=== PATIENT | male | born 1980 | race Caucasian/White ===

== ENCOUNTER 2018-07-18 11:34 | Outpatient (REF) | payer MEDICAID, SELFPAY ==
[2018-07-18 21:30] LABS: ALT 80 U/L (12-78); AST 33 U/L (15-37); Uric Acid 6.1 mg/dL (3.5-7.2)
== END 2018-07-18 11:54 ==
LOC: NCHCN 11:34
PROVIDERS: PCP Family Medicine; Visit Provider Registered Nurse
DX: M10.9 Gout, unspecified (principal); K76.0 Fatty (change of) liver, not elsewhere classified; R94.5 Abnormal results of liver function studies; E66.9 Obesity, unspecified
CPT/HCPCS: 84450; 84460; 84550

== ENCOUNTER 2019-04-19 13:39 | Outpatient (REF) | payer MEDICAID, SELFPAY ==
[2019-04-19 22:57] LABS: Abs Immature Grans 0.02 k/cumm (0.0-0.09); Absolute Basophil Count 0.02 k/cumm (0.0-0.2); Absolute Eosinophil Count 0.11 k/cumm (0.0-0.7); Basophils % 0.3; Eosinophils % 1.7; HCT 44.6 % (40.0-50.0); HGB 15.6 g/dL (13.5-17.5); Immature Grans % 0.3; Lymphocytes % 21.1; Mean Corpuscular Hemoglobin 30.1 pg (27.0-33.0); Mean Corpuscular Volume 86.1 fL (80-95); Mean Platelet Volume 10.1 fL (8.0-11.0); Monocytes % 7.5; Neutrophils % 69.1; Platelet Count 248 x1000/uL (130-400); RBC 5.18 m/cumm (4.50-6.00); RBC Distribution Width 12.6 % (11.8-14.1); White Blood Cell Count 6.65 k/cumm (4.4-10.8)
[2019-04-19 23:06] LABS: ALT 51 U/L (12-78); AST 27 U/L (15-37); Albumin 3.9 g/dL (3.4-5.0); Alkaline Phosphatase 103 U/L (46-116); Anion Gap 11.5 mmol/L (3-11); BUN 10 mg/dL (7-18); Bilirubin, Total 0.6 mg/dL (0.2-1.0); CO2 25.5 mmol/L (21.0-32.0); CREATININE 1.08 mg/dL (0.70-1.30); Calcium 8.6 mg/dL (8.5-10.1); Calculated LDL 116 mg/dL; Chloride 103 mmol/L (98-107); Cholesterol 177 mg/dL (50-200); Glucose 76 mg/dL (70-100); HDL Cholesterol 29 mg/dL (40-60); Sodium 140 mmol/L (136-145); Triglyceride 162 mg/dL (30-150)
[2019-04-19 23:26] LABS: TSH (W/Ref FT4) 11.15 uIU/mL (0.36-3.74)
[2019-04-19 23:42] LABS: FREE T4 0.98 ng/dL (0.76-1.46)
== END 2019-04-19 13:59 ==
LOC: NCHCN 13:39
PROVIDERS: PCP Family Medicine; Visit Provider Family Medicine
DX: I10 Essential (primary) hypertension (principal); M10.9 Gout, unspecified; R94.5 Abnormal results of liver function studies
CPT/HCPCS: 80053; 80061; 83721; 84439; 84443; 85025

== ENCOUNTER 2019-04-28 11:05 | Outpatient (REF) | payer MEDICAID, SELFPAY ==
[2019-04-28 21:34] LABS: Uric Acid 6.4 mg/dL (3.5-7.2)
== END 2019-04-28 11:25 ==
LOC: NCHCN 11:05
PROVIDERS: PCP Family Medicine; Visit Provider Family Medicine
DX: I10 Essential (primary) hypertension (principal); M10.9 Gout, unspecified; R94.5 Abnormal results of liver function studies
CPT/HCPCS: 84550

== ENCOUNTER 2020-04-24 16:44 | Emergency (ER) | payer MEDICAID, SELFPAY ==
--- NOTE | 2020-04-24 17:03 | W.ED.GENAD ---
Discharge Plan Disposition Patient Disposition: HOME Condition: Good Discharge Details Chief Complaint: FlankPain Clinical Impression: Kidney stone, Creatinine elevation, Elevated liver enzymes Primary Care Provider: Miguel Hutson ED Provider: Angelina Spears Home Meds and New Rx's Prescriptions: New tamsulosin [Flomax] 0.4 mg capsule 0.4 mg PO DAILY Qty: 7 RF: 0 oxycodone 5 mg tablet 5 mg PO Q8H PRN (Reason: pain) Qty: 7 RF: 0 ondansetron 4 mg tablet,disintegrating 4 mg PO Q6H PRN (Reason: nausea and vomiting) Qty: 10 RF: 0 Continued allopurinol 300 mg tablet 300 mg PO DAILY RF: 0 Discharge Instructions Instructions: Oxycodone, Rapid Release (By mouth), Ondansetron (By mouth), Kidney Stones (ED) Additional Instructions: Encourage water intake. You may use Tylenol and/or ibuprofen as needed for discomfort. Please Flomax once a day, your dosing was given here today. Please continue to medication until your stone is passed. Please continue trying to strain your urine to catch a stone if possible. If Tylenol and ibuprofen are insufficient in alleviating your discomfort, please take the oxycodone as prescribed. Please take this medication only as prescribed do not drive will take this medication. Keep this in a safe place. May use Zofran as prescribed if nausea returns. Your liver enzymes and kidney function were elevated today. As discussed, I believe that your kidney function was set off by her stone as well as your dehydration. I would like for you to have this rechecked in few days. As discussed, your elevated liver enzymes may be associated with fatty liver disease, weight loss would be of benefit. Please discuss this further with your primary care. Please follow-up with primary care in the next few days for reevaluation and to have labs rechecked. Referral has been sent to urology. If you develop fever/chills, increased pain, inability stay hydrated or other new/worsening symptom please seek care urgently once again. Referrals: Miguel Hutson [Primary Care Provider] - Medical Decision Making Patient is a pleasant 39-year-old gentleman Presenting today with chief complaint of right flank pain. Reports that pain began suddenly approximately 1 hour prior to arrival. States that the has had nausea and vomiting. States he has had pain like this historically with nephrolithiasis. States that he has had one kidney stone which is approximately 10 years ago. He denies any fevers or chills. No dysuria keep hematuria. Denies any abdominal pain. Indicates the right flank area of discomfort. She denies any testicular discomfort. Denies any chest pain, shortness of breath, cough. Patient did recently travel to [facility] which is currently in the yellow for COVID-19. Patient does report that he has had diminished hydration. Had not been taking his allopurinol as prescribed for his gout. States that his urine has been very concentrated. On exam, patient appears uncomfortable. He indicates the right flank is area of discomfort. Abdomen is benign. He appears nontoxic. Appears dehydrated. Patient given Toradol and Zofran. Reports vast improvement in his nausea and discomfort. Hydrating patient. Labs reviewed. No leukocytosis. Stable H&H. Potassium is barely low at 3.4. Creatinine is bumped at 1.48. He last had this checked 1 year ago at which time it was 1.08. BUN stable. AST and ALT are both slightly elevated at 54 and 97 respectively. Patient has been elevated like this historically. Urine significant for large amount of blood, elevated specific gravity. No bacteria, negative leukocyte esterase, negative nitrite. FINDINGS: Lungs: Lung bases are clear. Liver: Diffuse hypoattenuation of the liver consistent with fatty infiltration. No hepatic mass, however hepatic dome excluded from field of view limiting evaluation of the hepatic dome. Gallbladder and bile ducts: Unremarkable. No calcified stones. No ductal dilation. Pancreas: Unremarkable. No ductal dilation. Spleen: Unremarkable. No splenomegaly. Adrenals: Unremarkable. No mass. Kidneys and ureters: There is mild asymmetric right hydronephrosis with 5 mm calcification within the proximal right ureter just distal to the UPJ. Remainder of left ureters normal in course and calibre. No left hydronephrosis or left renal calcification. Stomach and bowel: Unremarkable. No obstruction. No focal mucosal thickening. Appendix: Within normal limits. Intraperitoneal space: No free air. No significant fluid collection. Vasculature: Within normal limits. No abdominal aortic aneurysm. Lymph nodes: No pathologically enlarged lymph nodes. Bladder: Bladder is nondistended limiting evaluation, otherwise unremarkable as visualized. Reproductive: Unremarkable as visualized. Bones/joints: Unremarkable. No acute fracture. Soft tissues: Trace/small fat containing umbilical hernia. IMPRESSION: 1. Mild asymmetric right hydronephrosis with 5 mm calcification in the proximal right ureter, just distal to the UPJ. 2. Hepatic steatosis. Correlate with LFTs. Discussed these findings with the patient. He is receiving 2 L of fluid. We did discuss his elevated creatinine and elevated LFTs. Patient received 0.4 mg of Flomax. We will continue him on this until passage of his stone. We will give the patient a strainer, he will continue to strain his urine and attempt to collect a stone. I will refer him to urology. Patient continues to be resting comfortably. He denies any return of his discomfort. He is hydrating orally while here. We did discuss lifestyle modifications. He was given strict return precautions. He will contact his primary care tomorrow to schedule follow-up appointment as well as have his creatinine reassessed. All of his questions and concerns were addressed and he is in agreement with this plan. HPI General Mode of arrival: ambulatory. Date/Time Provider Initiated Documentation: 04/24/20 17:03. Limitations to Documentation: no limitations. Information obtained by: patient and RN notes reviewed. History of Present Illness 39 year old M presents to the emergency department with the chief complaint of right flank pain, described as moderate, with intensity rated at 8. Quality is described as stabbing, and is localized to the back (right flank). Patient reports no radiation. Patient started experiencing this hour(s) (1) and it has been constant. No relieving factors improve symptom(s), No exacerbating factors reported . Patient notes nausea/vomiting; denies chest pain, cough, fever/chills, loss of appetite, rash, shortness of breath and weakness. Patient did receive the following treatments prior to arrival, none Related Data Home Medications Medication Instructions Recorded Confirmed allopurinol 300 mg PO DAILY 04/24/20 04/24/20 ondansetron 4 mg PO Q6H PRN #10 tab 04/24/20 oxycodone 5 mg PO Q8H PRN #7 tab 04/24/20 tamsulosin [Flomax] 0.4 mg PO DAILY #7 cap 04/24/20 Previous Rx's Medication Instructions Recorded ondansetron 4 mg PO Q6H PRN #10 tab 04/24/20 oxycodone 5 mg PO Q8H PRN #7 tab 04/24/20 tamsulosin [Flomax] 0.4 mg PO DAILY #7 cap 04/24/20 Allergies Allergy/AdvReac Type Severity Reaction Status Date / Time penicillin G Allergy Unverified 04/24/20 17:25 Review of Systems Constitutional Constitutional: Reports as per HPI, Denies chills, Denies fatigue, Denies fever(s) and Denies headache(s) ENT Ears, Nose, Mouth, and Throat: Denies headache(s) Cardiovascular Cardiovascular: Reports as per HPI, Denies chest pain and Denies dyspnea Respiratory Respiratory: Reports as per HPI, Denies cough and Denies dyspnea Gastrointestinal Gastrointestinal: Reports as per HPI Genitourinary Genitourinary: Reports as per HPI Musculoskeletal Musculoskeletal: Reports as per HPI Neurologic Neurologic: Denies headache(s) Endocrine Endocrine: Denies fatigue Exam Const General: cooperative, healthy appearing, uncomfortable, no acute distress and well developed Nutritional Appearance: well nourished and overweight Orientation: alert and awake HENMD Mouth: mucous membranes dry (looks dry) Resp Effort & Inspection: normal respiratory effort and no respiratory distress Cardio Rate: regular rate Rhythm: regular rhythm GI Inspection: normal to inspection, no edema and non-distended Palpation: soft, no hepatosplenomegaly, no guarding, no hernias, no pulsatile masses and nontender Percussion: normal to percussion Auscultation: normal bowel sounds Back/Spine/Pelvis Back: CVA tenderness (right) Skin General skin exam: no rashes or lesions noted Neuro General: patient alert and patient awake Cognition: normal cognition Speech: speech normal Gait: normal gait Psych Appearance: grossly normal and well kempt Mental Status: mental status grossly normal Speech and Movement: speech and movement normal
[2020-04-24] MEDS: Normal Saline 1,000 ML 1000 ML IV (17:10)
[2020-04-24] MEDS: Ketorolac 30 MG/ML VIAL IVP (17:10)
[2020-04-24 17:19] VITALS: BP 146/90; PULSE 66; RESP 18; TEMP 35.8; O2SAT 98
[2020-04-24] MEDS: Ondansetron 4 MG/2 ML VIAL IVP (17:24)
[2020-04-24 17:39] LABS: Abs Immature Grans 0.05 10^3/uL (0.0-0.06); Absolute Basophil Count 0.04 10^3/uL (0.0-0.2); Absolute Eosinophil Count 0.14 10^3/uL (0.0-0.7); Absolute Lymphocyte Count 1.79 10^3/uL (1.2-3.4); Absolute Monocyte Count 0.59 10^3/uL (0.1-0.8); Absolute Neutrophil Count 4.87 10^3/uL (1.2-6.7); Basophils % 0.5; Eosinophils % 1.9; HCT 44.5 % (40.0-50.0); HGB 15.3 g/dL (13.5-17.5); Immature Grans % 0.7; Lymphocytes % 23.9; MCH 30.9 pg (27.0-33.0); MCHC 34.4 % (32.0-36.0); MCV 89.9 fL (80-95); MPV 9.6 fL (8.0-11.0); Monocytes % 7.9; Neutrophils % 65.1; Platelet Count 243 10^3/uL (130-400); RBC 4.95 10^6/uL (4.36-5.78); RDW 11.9 % (11.8-14.1); RDW-SD 38.7 fL; WBC 7.48 10^3/uL (4.4-10.8)
[2020-04-24 17:54] LABS: ALT 97 U/L (16-63); AST 54 U/L (15-37); Albumin 4.1 g/dL (3.4-5.0); Alkaline Phosphatase 85 U/L (46-116); Anion Gap 7.5 mmol/L (3-11); BUN 13 mg/dL (7-18); Bilirubin, Total 0.5 mg/dL (0.2-1.0); CO2 29.5 mmol/L (21.0-32.0); CREATININE 1.48 mg/dL (0.70-1.30); Calcium 8.7 mg/dL (8.5-10.1); Chloride 101 mmol/L (98-107); Estimated GFR 53.19 (mL/min/1.73m2); Glucose 120 mg/dL (74-106); Potassium 3.4 mmol/L (3.5-5.1); Sodium 138 mmol/L (136-145); Total Protein 7.8 g/dL (6.4-8.2)
[2020-04-24 17:57] LABS: Lipase 108 U/L (73-393)
--- NOTE | 2020-04-24 18:30 | DI.CT_ITS ---
EXAM: CT RENAL COLIC WO CLINICAL HISTORY: right flank pain, hx of stone. TECHNIQUE: Imaging Protocol: Axial computed tomography images with coronal and sagittal reformatted images were created and reviewed. CONTRAST MATERIAL: Intravenous: Omnipaque 350 Contrast volume:structured data in ml Contrast route:I V - Oral: yes / no COMPARISON: No exams were available for comparison FINDINGS: ABDOMEN: Lung Bases: Normal where visualized. Liver: Severe fatty infiltration. No measurable mass. Gallbladder and biliary tract: No radiodense calculus or dilation. Pancreas: Normal density, no abnormal calcifications or inflammatory process. Spleen: Normal. Kidneys: Normal size, contour and axis. There is mild right hydronephrosis secondary to 5 millimeter calcification in the proximal right ureter. No additional calculi are identified. Adrenal glands: No masses seen. Abdominal Aorta: Abdominal portion non-dilated. Soft tissues: Tiny fatty umbilical hernia. PELVIS: Bladder: Nearly empty, no gross wall thickening. Bowel: No obstruction or bowel wall thickening. Normal appendix Peritoneal cavity: No ascites, collection or mesenteric inflammatory response. Bones: Within normal limits. IMPRESSION: Mild right hydronephrosis secondary to 5 millimeter stone in the proximal right ureter. Severe hepat ic steatosis. RADIATION DOSE DELIVERED: 1,369.2mGy.cm Total DLP DATA REPOSITORY: All CT scans at this facility are submitted to the National Radiology Data Registry (NRDR) Dose Index Registry (DIR) with the [employer] ([employer]). RADIATION OPTIMIZATION: All CT scans at this facility use at least one of these dose optimization te chniques: automated exposure control; mA and/or kV adjustment per patient size (includes targeted exa ms where dose is matched to clinical indication); or iterative reconstruction.
[2020-04-24 18:53] LABS: Bilirubin Negative (Negative); Blood Large (Negative); Clarity Cloudy (Clear); Glucose Negative (Negative); Ketones Negative (Negative); Leukocyte Esterase Negative (Negative); Nitrite Negative (Negative); Specific Gravity >= 1.030 (1.005-1.025); Urobilinogen 0.2 EU/dL (Up TO 0.2); pH 5.5 (5-8)
--- NOTE | 2020-04-24 19:07 | DI.VRAD_ITS ---
PROCEDURE INFORMATION: Exam: CT Abdomen And Pelvis Without Contrast Exam date and time: 04/24/2020 6:28 PM Age: 39 years old Clinical indication: Abdominal pain; Patient HX: HX of kidney stones. Right flank pain. TECHNIQUE: Imaging protocol: Computed tomography of the abdomen and pelvis without contrast. Radiation optimization: All CT scans at this facility use at least one of these dose optimization techniques: automated exposure control; mA and/or kV adjustment per patient size (includes targeted exams where dose is matched to clinical indication); or iterative reconstruction. COMPARISON: No relevant prior studies available. FINDINGS: Lungs: Lung bases are clear. Liver: Diffuse hypoattenuation of the liver consistent with fatty infiltration. No hepatic mass, however hepatic dome excluded from field of view limiting evaluation of the hepatic dome. Gallbladder and bile ducts: Unremarkable. No calcified stones. No ductal dilation. Pancreas: Unremarkable. No ductal dilation. Spleen: Unremarkable. No splenomegaly. Adrenals: Unremarkable. No mass. Kidneys and ureters: There is mild asymmetric right hydronephrosis with 5 mm calcification within the proximal right ureter just distal to the UPJ. Remainder of left ureters normal in course and calibre. No left hydronephrosis or left renal calcification. Stomach and bowel: Unremarkable. No obstruction. No focal mucosal thickening. Appendix: Within normal limits. Intraperitoneal space: No free air. No significant fluid collection. Vasculature: Within normal limits. No abdominal aortic aneurysm. Lymph nodes: No pathologically enlarged lymph nodes. Bladder: Bladder is nondistended limiting evaluation, otherwise unremarkable as visualized. Reproductive: Unremarkable as visualized. Bones/joints: Unremarkable. No acute fracture. Soft tissues: Trace/small fat containing umbilical hernia. IMPRESSION: 1. Mild asymmetric right hydronephrosis with 5 mm calcification in the proximal right ureter, just distal to the UPJ. 2. Hepatic steatosis. Correlate with LFTs. Dictated and Authenticated by: Vinh Crisostomo MD. Ordering:BETZY Alfaro MD
[2020-04-24 19:12] LABS: Bacteria Negative HPF (Negative); C & S Indicated? No; Casts Negative LPF (Negative); Crystals Negative HPF (Negative); Epithelial Cells Few HPF (Negative); Mucus Negative (Negative); RBC >50 HPF (0-2); WBC 0-2 HPF (0-5)
[2020-04-24] MEDS: Tamsulosin 0.4 MG CAPCR PO (19:44)
[2020-04-24] MEDS: Lactated Ringers 1,000 ML 1000 ML IV (19:44)
--- NOTE | 2020-04-24 20:53 | NUR.NOTE ---
Nursing Note:FAXED REFRAL TO DR BARNETT ON 04/24/20
== END 2020-04-24 21:20 | disposition home or self-care (01) ==
PROVIDERS: Emergency Provider Physician Assistant; PCP Family Medicine
DX: N13.2 Hydronephrosis with renal and ureteral calculous obstruction (principal); R94.4 Abnormal results of kidney function studies; R74.8 Abnormal levels of other serum enzymes; R11.2 Nausea with vomiting, unspecified; E86.0 Dehydration; Z87.442 Personal history of urinary calculi
CPT/HCPCS: 36415; 80053; 83690; 96361; 96374; 96375; 99284; 74176; 81003; 81015; 85025; J1885; J2405

== ENCOUNTER 2020-07-30 12:51 | Outpatient (CLI) | payer MEDICAID, SELFPAY ==
--- NOTE | 2020-07-31 11:45 | DI.US_ITS ---
EXAM: US RENAL CLINICAL HISTORY: Monitoring hydro d/t right ureteral stone N13.30 HYDRONEPHROSIS. TECHNIQUE: Rosenberg scale, color and spectral Doppler were used. COMPARISON: CT CT RENAL COLIC WO from 04/24/2020 FINDINGS: Renal size in cm: Right: 10.3. Left: 10.6. Echogenicity: Normal. Hydronephrosis: No. Cyst or mass: No. Nephrolithiasis: No. Other findings: None. Bladder:Normal. Incompletely distended. Ureteral jets: Right: Visualized and unremarkable. Left: Visualized and unremarkable. Prevoid vol:9.4 cc Prostate: 24.4 cc Renal color flow: Symmetric and within normal limits. IMPRESSION: Unremarkable examination. No hydronephrosis. DATA REPOSITORY:
== END 2020-07-30 13:11 ==
PROVIDERS: PCP Nurse Practitioner Family; Visit Provider Nurse Practitioner Gerontology
DX: Z87.448 Personal history of other diseases of urinary system (principal)
CPT/HCPCS: 76770

== ENCOUNTER 2020-07-31 20:59 | Outpatient (REF) | payer MEDICAID, SELFPAY ==
[2020-07-31 22:28] LABS: ALT 100 U/L (16-63); AST 67 U/L (15-37); Albumin 4.1 g/dL (3.4-5.0); Alkaline Phosphatase 84 U/L (46-116); Anion Gap 9.2 mmol/L (3-11); BUN 12 mg/dL (7-18); Bilirubin, Total 0.5 mg/dL (0.2-1.0); CO2 27.8 mmol/L (21.0-32.0); CREATININE 1.19 mg/dL (0.70-1.30); Calcium 8.9 mg/dL (8.5-10.1); Chloride 102 mmol/L (98-107); Glucose 81 mg/dL (74-106); Potassium 4.2 mmol/L (3.5-5.1); Sodium 139 mmol/L (136-145); TSH (W/Ref FT4) 16.25 uIU/mL (0.36-3.74); Total Protein 7.3 g/dL (6.4-8.2)
[2020-07-31 22:58] LABS: FREE T4 0.95 ng/dL (0.76-1.46)
== END 2020-07-31 21:19 ==
LOC: NCHCN 20:59
PROVIDERS: PCP Nurse Practitioner Family; Visit Provider Nurse Practitioner Family
DX: R94.5 Abnormal results of liver function studies (principal); E66.9 Obesity, unspecified; E78.70 Disorder of bile acid and cholesterol metabolism, unspecified
CPT/HCPCS: 80053; 84439; 84443

== ENCOUNTER 2021-02-21 15:24 | Outpatient (REF) | payer MEDICAID, SELFPAY ==
[2021-02-21 21:23] LABS: TSH 2.15 uIU/mL (0.36-3.74)
== END 2021-02-21 15:25 | disposition home or self-care (01) ==
LOC: NCHCN 15:24
PROVIDERS: PCP Nurse Practitioner Family; Visit Provider Internal Medicine
DX: E03.9 Hypothyroidism, unspecified (principal); E78.70 Disorder of bile acid and cholesterol metabolism, unspecified; K76.0 Fatty (change of) liver, not elsewhere classified
CPT/HCPCS: 84443

== ENCOUNTER 2022-02-13 14:51 | Outpatient (REF) | payer MEDICAID, SELFPAY ==
[2022-02-13 21:17] LABS: TSH 4.13 uIU/mL (0.36-3.74)
== END 2022-02-13 14:52 | disposition home or self-care (01) ==
LOC: NCHCN 14:51
PROVIDERS: PCP Nurse Practitioner Family; Visit Provider Nurse Practitioner Family
DX: E03.9 Hypothyroidism, unspecified (principal); E78.70 Disorder of bile acid and cholesterol metabolism, unspecified; I10 Essential (primary) hypertension; K76.0 Fatty (change of) liver, not elsewhere classified
CPT/HCPCS: 84443

== ENCOUNTER 2022-10-21 16:58 | Outpatient (REF) | payer MEDICAID, SELFPAY ==
[2022-10-21 21:54] LABS: ALT 43 U/L (16-63); AST 34 U/L (15-37); Albumin 4.2 g/dL (3.4-5.0); Alkaline Phosphatase 111 U/L (46-116); Anion Gap 6.7 mmol/L (3-11); BUN 12 mg/dL (7-18); Bilirubin, Total 0.6 mg/dL (0.2-1.0); CO2 28.3 mmol/L (21.0-32.0); CREATININE 1.1 mg/dL (0.70-1.30); Calcium 9.1 mg/dL (8.5-10.1); Chloride 103 mmol/L (98-107); Estimated GFR 86.49 (mL/min/1.73m2); Glucose 85 mg/dL (74-106); Potassium 3.8 mmol/L (3.5-5.1); Sodium 138 mmol/L (136-145); Total Protein 7.9 g/dL (6.4-8.2); Uric Acid 5.8 mg/dL (3.5-7.2)
[2022-10-21 22:18] LABS: Calculated LDL 113 mg/dL (<100); Cholesterol 172 mg/dL (<200); HDL Cholesterol 36 mg/dL (40-60); Triglyceride 117 mg/dL (<150)
== END 2022-10-21 16:59 | disposition home or self-care (01) ==
LOC: NCHCN 16:58
PROVIDERS: PCP Nurse Practitioner Family; Visit Provider Nurse Practitioner Family
DX: E03.9 Hypothyroidism, unspecified (principal); M10.9 Gout, unspecified; I10 Essential (primary) hypertension; K76.0 Fatty (change of) liver, not elsewhere classified; E66.9 Obesity, unspecified; E78.00 Pure hypercholesterolemia, unspecified
CPT/HCPCS: 80053; 80061; 84443; 84550